=== PATIENT | male | born 1970 | race Two or more races ===

== ENCOUNTER 2023-12-08 05:52 | Emergency (ER) | payer OTHER, SELFPAY ==
--- NOTE | ~2023-12-08 | XR_ITS ---
XR hip LT min 3V w AP pelvis DATE: 12/08/2023 07:14 INDICATION: Sharp left hip pain. No injury. TECHNIQUE: AP pelvis. AP and lateral views of left hip COMPARISON: None FINDINGS: No pelvic fracture or bone destruction. Normal alignment at the pubic symphysis and sacroil iac joints. Hip joint spaces are symmetric and relatively preserved. No fracture, dislocation, avascular necrosis or bone destruction of the left hip. Mild left hip osteo arthritis. IMPRESSION: Mild left hip osteoarthritis; no fracture or dislocation, avascular necrosis or bone dest ruction Reviewed, dictated and finalized at location A. [facility] INSPECTOR IMPRESSION: Mild left hip osteoarthritis; no fracture or dislocation, avascular necrosis or bone destruction
[2023-12-08 05:52] VITALS: BP 168/98; PULSE 68; RESP 15; TEMP 36.3; O2SAT 100
--- NOTE | 2023-12-08 07:11 | ED.LOWEXIN ---
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 No recent injuries. No swelling of his leg. Describes the pain is coming from his left lower back and shooting down his entire left leg down to his foot, with a sensation of numbness and burning to his leg. Related Data Allergies Allergy/AdvReac Type Severity Reaction Status Date / Time No Known Allergies Allergy Verified 12/08/23 05:57 Review of Systems Review of Systems: CONST: No fever. HEENT: No sore throat C/V: No chest pain RESP: No cough GI: No abdominal pain : No dysuria. M/S: left hip pain SKIN: No rash. NEURO: decreased sensation left lower leg PSYCH: [No depression] Exam Narrative: EXAMINATION OF ORGAN SYSTEMS/BODY AREAS: Constitutional: Vital signs per nursing GENERAL:[No acute distress, non-toxic appearing.] HEAD: Normal with no signs of head trauma. EYES: EOMI, conjunctiva normal ENT: Hearing grossly intact LUNGS: Nonlabored breathing. HEART: [Regular rate and rhythm]. Normal DP, PT, femoral pulses on left. Well perfused leg/foot. ABD: [Soft], [nontender to palpation] EXT: Normal range of motion; no obvious deformity. SKIN: [No rashes or lesions.] NEURO: [Alert and oriented x 3. Diminished sensation left lower leg.] able to stand up but difficulty ambulating due to pain. Able to flex/extend at hip, knee, ankle. PSYCH: Normal affect Course Vital Signs Vital signs: Vital Signs Temperature 97.4 F L 12/08/23 05:52 Pulse Rate 68 12/08/23 05:52 Respiratory Rate 15 12/08/23 05:52 Blood Pressure 168/98 H 12/08/23 05:52 Pulse Oximetry 100 12/08/23 05:52 Oxygen Delivery Room Air 12/08/23 05:52 Temperature 97.4 F L 12/08/23 05:52 Pulse Rate 80 12/08/23 07:37 Respiratory Rate 18 12/08/23 07:37 Blood Pressure 119/86 12/08/23 07:37 Pulse Oximetry 100 12/08/23 07:37 Oxygen Delivery Room Air 12/08/23 05:52 MDM - Extremity Injury (Lower) MDM Narrative Medical decision making narrative: ED COURSE AND MEDICAL DECISION MAKINM with acute back pain. Normal motor exam but diminished sensation to left lower leg. Normal DP and PT and femoral pulses. No evidence of acute cord compression, osteomyelitis/discitis or cauda equina without saddle anesthesia, urinary retention/incontinence, numbness/tingling in lower extremities, fever, history of IV drug use, cancer or immunosuppression. Doubt AAA or aortic dissection without severe pain/discomfort. [Ketorolac , lidocaine patch, norco] given for symptomatic relief. Hip xray showing arthritis. Will reevaluate the need for further investigations after the medications. On reevaluation, the symptoms are improved. Patient is able to rest more comfortably. [I discussed management of acute back pain in detail, explaining the need to remain active and the goals of pain control.] Patient is given return precautions and instructed to come back at any point in time for worsening pain, fevers, weakness, difficulty walking, urinary or fecal incontinence. Patient expressed understanding of instructions. Discharge Plan Discharge Clinical Impression: Acute left lumbar radiculopathy Patient Disposition: Home, Self-Care Condition: Stable Instructions: Antibiotic Form, Sciatica (ED), Lumbar Radiculopathy (ED) Additional Instructions: Follow up with your PCP immediately once you get home. If you find that you have worse
[2023-12-08] MEDS: KETOROLAC 30 MG/ML VIAL (*BKC) IM (07:30)
[2023-12-08] MEDS: LIDOCAINE 5% PATCH 1 PATCH TRANSDERM (07:30)
[2023-12-08 07:37] VITALS: BP 119/86; PULSE 80; RESP 18; O2SAT 100
[2023-12-08] MEDS: HYDROcodone/acetaminophen (*CRX) 5-325 MG TABLET 1 TAB PO (08:15)
[2023-12-08] MEDS: predniSONE 20 MG TABLET 40 MG PO (08:16)
[2023-12-08 09:22] VITALS: BP 134/74; PULSE 79; RESP 19; TEMP 36.4; O2SAT 100
== END 2023-12-08 09:24 | disposition home or self-care (01) ==
PROVIDERS: Emergency Provider Emergency Medicine
DX: M54.16 Radiculopathy, lumbar region (principal)
CPT/HCPCS: 73502; 96372; 99283; A9270; J1885; J7512